=== PATIENT | female | born 1940 | race Caucasian/White ===

== ENCOUNTER 2020-09-17 10:43 | Emergency (ER) | payer MEDICARE, SELFPAY ==
--- NOTE | ~2020-09-17 | CT_ITS ---
EXAMINATION: CT HEAD WITHOUT CONTRAST CLINICAL INFORMATION: Weakness COMPARISON: None TECHNIQUE: Contiguous axial imaging was performed from the skull base to vertex without intravenous administration of contrast. This CT examination was performed using dose optimization techniques as appropriate, variously including the following: *Automated exposure control *Adjustment of mA and/or kV according to patient size (this includes techniques or standardized protocols for targeted exams where dose is matched to indication/reason for exam; i.e. extremities or head) *Use of iterative reconstruction technique DLP: 795 mGy-cm FINDINGS: There is no evidence of acute intracranial hemorrhage or territorial infarction. No abnormal mass effect or midline shift is seen. Segal to white matter differentiation is well preserved. No extra-axial fluid collections are identified. Hypoattenuation in the region of the left lentiform nucleus and the left external capsule, with x-ray. Dilatation of the left lateral ventricle. The findings are suggestive of a chronic infarct. The segal-white matter differentiation otherwise is well preserved. No evidence of acute territorial infarction is seen. Mild cerebral volume loss. Hypoattenuation in the white matter, more prominently left side, most likely related to chronic microangiopathic ischemic changes. No acute calvarial fracture. The mastoid air cells and visualized portions of the paranasal sinuses are well aerated. CT/CT head/brain wo con IMPRESSION: 1. No evidence of acute intracranial hemorrhage. 2. Hypoattenuation in the region of the left lentiform nucleus and left external capsule, having the appearance of a chronic infarction. 3. No findings to suggest acute territorial infarction. Further evaluation with MRI or CT as clinically warranted. 4. Chronic changes of cerebral volume loss and chronic microangiopathic ischemic changes, as detailed above.
--- NOTE | ~2020-09-17 | XR_ITS ---
EXAMINATION: XR CHEST CLINICAL INFORMATION: Shortness of breath COMPARISON: None TECHNIQUE: Frontal view of the chest was obtained. FINDINGS: No significant abnormality is noted involving the heart, lungs, mediastinum, bony thorax or soft tissues. XR/XR chest 1V IMPRESSION: Unremarkable examination.
[2020-09-17 11:09] VITALS: BP 131/37; PULSE 84; RESP 16; TEMP 36.6; O2SAT 96; BMI 28.3
--- NOTE | 2020-09-17 11:22 | ECG_ITS ---
Test Reason : WEAKNESS Blood Pressure : / mmHG Vent. Rate : 083 BPM Atrial Rate : 083 BPM P-R Int : 154 ms QRS Dur : 074 ms QT Int : 356 ms P-R-T Axes : 056 013 055 degrees QTc Int : 418 ms Sinus rhythm with frequent Premature ventricular complexes Nonspecific ST and T wave abnormality Abnormal ECG No previous ECGs available Referred By: Paula Cornell Electronically Signed By:KUMAR MERCER MD
--- NOTE | 2020-09-17 11:30 | ED.WEAKNESS ---
HPI - Weakness General Chief complaint: Weakness Stated complaint: fully vaccinated/weakness Time Seen by Provider: 09/17/20 11:21 Source: patient and EMS Mode of arrival: EMS Limitations: no limitations History of Present Illness HPI Narrative: 80 y/o female with history of HTN, hypothyroidism who presents to the ED via EMS from assisted living with reports of generalized weakness that started yesterday after receiving her 2nd dose of the COVID vaccine. She states she went to get up out of bed this morning but was so weak she was unable to get up. She walks with a walker at baseline but could not get herself out of bed. She does not recall what time she tried to get up out of bed. She lives alone. She denies falling. She denies numbness, tingling and focal weakness. She is scared of being in the hospital and is afraid she is going to . MD Complaint: generalized weakness, lack of energy and difficulty walking Onset (ago): day(s) (1) Duration: constant Location: generalized Migration: none Severity: severe Quality: aching Relieving factors: none Exacerbating factors: movement Context: other (recent 2nd COVID vaccination yesterday ) Associated symptoms: confusion and myalgias Related Data Allergies Allergy/AdvReac Type Severity Reaction Status Date / Time No Known Allergies Allergy Verified 09/17/20 12:25 Review of Systems Review of Systems: Constitutional: No Fever, No Chills ENT/Mouth: No sore throat, No Rhinorrhea, No Swallowing Difficulty Cardiovascular: No Chest Pain, + SOB, No Orthopnea, No Edema Respiratory: No Cough, No Sputum, No Wheezing, No dyspnea Gastrointestinal: No Nausea, No Vomiting, No Diarrhea, No abdominal Pain Genitourinary: No Dysuria, No Urinary Frequency, No Hematuria Musculoskeletal: + joint pain, + Myalgias Skin: No Skin Lesions, No rash Neuro: + Weakness, No Numbness, No Dizziness, No Headache Psych: + Anxiety/Panic, No Depression Heme/Lymph: No Bruising, No Lymphadenopathy Endocrine: No Polyuria, No Polydipsia PMFSH Past Medical History Medical History Hypercholesteremia Hypertension Hypothyroidism Social History Social History Smoked in Last 30 Days: No Use of substances other than those prescribed or required for medical reasons: No Any prior treatment program specific to substance use: No Advance Directives: No Advance Directives Information Provided: Yes Physical Exam Vital Signs: Vital Signs: Last Vital Signs Temp 97.9 F 09/17/20 11:09 Pulse 90 09/17/20 15:24 Resp 18 09/17/20 15:24 BP 135/60 09/17/20 15:24 Pulse Ox 96 09/17/20 15:24 Body Mass Index 28.3 Appearance: Alert. Oriented X2. No acute distress. Eyes: Pupils equal, round and reactive to light. ENT: Pharynx normal. Neck: Normal inspection. Neck supple. CVS: Normal heart rate and rhythm. Pulses normal. Respiratory: No respiratory distress. Breath sounds normal. Abdomen: Soft and nontender. +BS x4 Skin: Skin warm and dry. Normal skin color. Normal skin turgor. No rashes. Extremities: No lower extremity edema. Tender throughout without any signs of trauma. Warm and well perfused. Neuro: Oriented to person and place. Mild generalized weakness noted, symmetrical strength throughout. CN II-XII grossly intact. no pronator drift. equal before school babysitter strength. mild intention hand tremor bilaterally able to lift both legs off the bed but cannot hold them up. Normal DTR's of bilateral LE. Non-focal NIH Stroke Scale Internal: Initial- Upon Arrival Level of Consciousness: Alert Level of Consciousness Questions: Answers both questions correctly Level of Consciousness Commands: Performs both tasks correctly Best Gaze: Normal Visual: No visual loss Facial Palsy: Normal Motor Arm (Right): No drift Motor Arm (Left): No drift Motor Leg (Right): No drift Motor Leg (Left): No drift Limb Ataxia: Present in two limbs Sensory: Normal Best Language: No aphasia Dysarthia: Normal Extinction and Inattention: No abnormality Score: 2 Course Course Course Narrative: 80 y/o female presenting with generalized weakness x1 day that started after COVID vaccination yesterday. Her neurological exam is non-focal. Doubt acute CVA, she is out of treatment window with unknown last well time. She is disoriented to time and has mild tremor of her hands, unknown baseline. BP 90/50s with MAP 72. Will check CT head, lab workup and EKG. 1L IVF ordered. Suspect weakness is due to COVID vaccine. If medically cleared will have her evaluated by PT. No evidence of Guillian Gladwin with normal DTR's. Reevaluation(s) Reevaluation #1: Lab workup is unremarkable. CT head No findings to suggest acute territorial infarction, Hypoattenuation in the region of the left lentiform nucleus and left external capsule, having the appearance of a chronic infarction. Chronic changes of cerebral volume loss and chronic microangiopathic ischemic changes. Spoke with patient's daughter - she reports this is a frequent presentation for her mother. She has high anxiety that leads to upset stomach and decreased PO intake and weakness. She was very nervous about the vaccine. Confirmed with daughter that this is her baseline mental status, the generalized weakness is new but a recurring issue. She has been to several SNF's this year for the same and has been in the assisted living she is in for the last 6 weeks. PT consult placed. Anticipate acute rehab. Reevaluation #2: PT recommending STR - Case Management has made referrals. PO intaks is poor, continue to encourage. Ate a few bites of jello. UA resulted without signs of infeciton. Reevaluation #3: Patient is to be placed at [facility] for acute rehab. Patient and daughter agreeable. MDM - Weakness Medical Records Attestation: I reviewed the patient's medical records. Lab Data Attestation: I reviewed the patient's lab results. Result diagrams: 09/17/20 12:19 09/17/20 12:19 Labs: Lab Results 09/17/20 09/17/20 09/17/20 Range/Units 12:19 12:19 12:19 WBC 10.0 (4.8-10.8) X10*3/uL RBC 4.07 L (4.20-5.50) X10*6/uL Hgb 12.7 (12.0-16.0) g/dl Hct 39.4 (37-47) % MCV 96.8 (80-98) fL MCH 31.2 (27.0-33.0) pg MCHC 32.2 (31.0-35.0) g/dl RDW 13.1 (11.0-16.0) % Plt Count 191 (160-400) X10*3/uL MPV 9.5 (9.4-12.3) fL Immature Gran % (Auto) 0.4 (0.0-0.4) % Neut % (Auto) 89.7 H (45-73) % Lymph % (Auto) 4.4 L (20-40) % [place] % (Auto) 5.3 (2-11) % Eos % (Auto) 0.0 (0-4) % Baso % (Auto) 0.2 (0-2) % Lymph # (Auto) 0.4 L (1.2-4.9) X10*3/uL [place] # (Auto) 0.5 (0.1-1.2) X10*3/uL Eos # (Auto) 0.0 (0.0-0.4) X10*3/uL Baso # (Auto) 0.0 (0.0-0.2) X10*3/uL Abs Immat Gran (auto) 0.04 H (0.00-0.03) X10*3/uL Absolute Neuts (auto) 9.0 H (2.0-8.3) X10*3/uL Absolute Nucleated RBC 0.000 (0.0-0.012) X10*3/uL Nucleated RBC % (auto) 0.0 (0.0-0.2) /100WBC Smear Tech's Comments VERIFIED Hold Blue Top SEE NOTE Sodium 139 (135-145) mmol/L Potassium 4.4 (3.3-5.1) mmol/L Chloride 108 (96-108) mmol/L Carbon Dioxide 23 (22-29) mmol/L Anion Gap 12 (12-20) BUN 19 H (9-16) mg/dL Creatinine 1.04 (0.5-1.4) mg/dL Estim Creat Clear Calc 43.5 Estimated GFR 51 Random Glucose 119 H (60-115) mg/dL Lactic Acid (0.5-2.0) mmol/L Calcium 9.9 (8.4-10.2) mg/dL Magnesium 1.9 (1.6-2.6) mg/dL Total Bilirubin 0.8 (0.0-1.0) mg/dL Direct Bilirubin 0.3 (0.0-0.5) mg/dL AST 18 (5-31) U/L ALT 14 (0-31) U/L Alkaline Phosphatase 51 (39-117) U/L Troponin I High Sens (<3.5-17.0) ng/L C-Reactive Protein 0.80 H (< or = 0.50) mg/dL Total Protein 6.8 (6.5-8.0) g/dL Albumin 4.1 (3.5-5.0) g/dL Procalcitonin ng/mL Urine Color Urine Appearance Urine pH (5.0-8.0) Ur Specific [place] (1.005-1.025) Urine Protein (NEG-TRACE) MG/DL Urine Glucose (UA) (NEG) MG/DL Urine Ketones (NEG) MG/DL Urine Blood (NEG) Urine Nitrite (NEG) Ur Leukocyte Esterase (NEG) Urine RBC (0) /HPF Urine WBC (0-4) /HPF Ur Squamous Epith Cells /LPF Urine Bacteria /LPF Urine Mucus /LPF COVID-19 (LENIN) (Negative) COVID-19 Clin Com 09/17/20 09/17/20 09/17/20 Range/Units 12:19 12:20 12:20 WBC (4.8-10.8) X10*3/uL RBC (4.20-5.50) X10*6/uL Hgb (12.0-16.0) g/dl Hct (37-47) % MCV (80-98) fL MCH (27.0-33.0) pg MCHC (31.0-35.0) g/dl RDW (11.0-16.0) % Plt Count (160-400) X10*3/uL MPV (9.4-12.3) fL Immature Gran % (Auto) (0.0-0.4) % Neut % (Auto) (45-73) % Lymph % (Auto) (20-40) % [place] % (Auto) (2-11) % Eos % (Auto) (0-4) % Baso % (Auto) (0-2) % Lymph # (Auto) (1.2-4.9) X10*3/uL [place] # (Auto) (0.1-1.2) X10*3/uL Eos # (Auto) (0.0-0.4) X10*3/uL Baso # (Auto) (0.0-0.2) X10*3/uL Abs Immat Gran (auto) (0.00-0.03) X10*3/uL Absolute Neuts (auto) (2.0-8.3) X10*3/uL Absolute Nucleated RBC (0.0-0.012) X10*3/uL Nucleated RBC % (auto) (0.0-0.2) /100WBC Smear Tech's Comments Hold Blue Top Sodium (135-145) mmol/L Potassium (3.3-5.1) mmol/L Chloride (96-108) mmol/L Carbon Dioxide (22-29) mmol/L Anion Gap (12-20) BUN (9-16) mg/dL Creatinine (0.5-1.4) mg/dL Estim Creat Clear Calc Estimated GFR Random Glucose (60-115) mg/dL Lactic Acid 1.8 (0.5-2.0) mmol/L Calcium (8.4-10.2) mg/dL Magnesium (1.6-2.6) mg/dL Total Bilirubin (0.0-1.0) mg/dL Direct Bilirubin (0.0-0.5) mg/dL AST (5-31) U/L ALT (0-31) U/L Alkaline Phosphatase (39-117) U/L Troponin I High Sens 6.2 (<3.5-17.0) ng/L C-Reactive Protein (< or = 0.50) mg/dL Total Protein (6.5-8.0) g/dL Albumin (3.5-5.0) g/dL Procalcitonin 0.03 ng/mL Urine Color Urine Appearance Urine pH (5.0-8.0) Ur Specific [place] (1.005-1.025) Urine Protein (NEG-TRACE) MG/DL Urine Glucose (UA) (NEG) MG/DL Urine Ketones (NEG) MG/DL Urine Blood (NEG) Urine Nitrite (NEG) Ur Leukocyte Esterase (NEG) Urine RBC (0) /HPF Urine WBC (0-4) /HPF Ur Squamous Epith Cells /LPF Urine Bacteria /LPF Urine Mucus /LPF COVID-19 (LENIN) (Negative) COVID-19 Clin Com 09/17/20 09/17/20 09/17/20 Range/Units 12:20 14:35 15:24 WBC (4.8-10.8) X10*3/uL RBC (4.20-5.50) X10*6/uL Hgb (12.0-16.0) g/dl Hct (37-47) % MCV (80-98) fL MCH (27.0-33.0) pg MCHC (31.0-35.0) g/dl RDW (11.0-16.0) % Plt Count (160-400) X10*3/uL MPV (9.4-12.3) fL Immature Gran % (Auto) (0.0-0.4) % Neut % (Auto) (45-73) % Lymph % (Auto) (20-40) % [place] % (Auto) (2-11) % Eos % (Auto) (0-4) % Baso % (Auto) (0-2) % Lymph # (Auto) (1.2-4.9) X10*3/uL [place] # (Auto) (0.1-1.2) X10*3/uL Eos # (Auto) (0.0-0.4) X10*3/uL Baso # (Auto) (0.0-0.2) X10*3/uL Abs Immat Gran (auto) (0.00-0.03) X10*3/uL Absolute Neuts (auto) (2.0-8.3) X10*3/uL Absolute Nucleated RBC (0.0-0.012) X10*3/uL Nucleated RBC % (auto) (0.0-0.2) /100WBC Smear Tech's Comments Hold Blue Top Sodium (135-145) mmol/L Potassium (3.3-5.1) mmol/L Chloride (96-108) mmol/L Carbon Dioxide (22-29) mmol/L Anion Gap (12-20) BUN (9-16) mg/dL Creatinine (0.5-1.4) mg/dL Estim Creat Clear Calc Estimated GFR Random Glucose (60-115) mg/dL Lactic Acid (0.5-2.0) mmol/L Calcium (8.4-10.2) mg/dL Magnesium (1.6-2.6) mg/dL Total Bilirubin (0.0-1.0) mg/dL Direct Bilirubin (0.0-0.5) mg/dL AST (5-31) U/L ALT (0-31) U/L Alkaline Phosphatase (39-117) U/L Troponin I High Sens 7.1 (<3.5-17.0) ng/L C-Reactive Protein (< or = 0.50) mg/dL Total Protein (6.5-8.0) g/dL Albumin (3.5-5.0) g/dL Procalcitonin ng/mL Urine Color YELLOW Urine Appearance HAZY Urine pH 5.5 (5.0-8.0) Ur Specific [place] 1.020 (1.005-1.025) Urine Protein NEG (NEG-TRACE) MG/DL Urine Glucose (UA) NEG (NEG) MG/DL Urine Ketones NEG (NEG) MG/DL Urine Blood 3+ H (NEG) Urine Nitrite NEG (NEG) Ur Leukocyte Esterase NEG (NEG) Urine RBC 15-29 H (0) /HPF Urine WBC 0-2 (0-4) /HPF Ur Squamous Epith Cells 1+ /LPF Urine Bacteria 1+ /LPF Urine Mucus 1+ /LPF COVID-19 (LENIN) Negative (Negative) COVID-19 Clin Com See Note ECG Data Attestation: I personally reviewed and interpreted this ECG as follows: ECG interpretation date: 09/17/20 ECG interpretation time: 12:02 Prior ECG tracings: not available for review Interpretation: normal sinus rhythm with HR 83 bpm, frequent PVC's noted in trigeminy pattern, normal IA interval, normal QRS, normal QTc, no ST elevations Critical Care Time Critical Care Time Critical Care Time: No Discharge Plan Discharge Clinical Impression: Generalized weakness Patient Disposition: [facility] Instructions: Weakness (ED), Anxiety (ED) Additional Instructions: Your CT scan, chest x-ray, blood work and urine tests done today in the Emergency Department were unremarkable. It is likely that your weakness is due to an adverse reaction of the COVID vaccine. It is evidence that your immune system is having a response to the vaccine, which is a good thing. Take Tylenol as needed for body aches and pain. You need to make sure you are eating and drinking enough. Stay hydrated. Recommend referral to acute rehab until your strength is returned and you can safely return to your assisted living. Follow up with your doctor next week.
[2020-09-17] MEDS: 0.9 % Sodium Chloride 1,000 ML 999 ML IVCONT (12:25)
[2020-09-17 12:31] LABS: Basophils Percent Auto 0.2 % (0-2); Hematocrit 39.4 % (37-47); Hemoglobin 12.7 g/dl (12.0-16.0); Imm Gran Abs Auto 0.04 X10*3/uL (0.00-0.03); Imm Gran Pct Auto 0.4 % (0.0-0.4); Lymphocytes Absolute Auto 0.4 X10*3/uL (1.2-4.9); Lymphocytes Percent Auto 4.4 % (20-40); MANUAL DIFF FLAG SCAN; Mean Corpuscular HGB Conc 32.2 g/dl (31.0-35.0); Mean Corpuscular Hemoglobin 31.2 pg (27.0-33.0); Mean Corpuscular Volume 96.8 fL (80-98); Mean Platelet Volume 9.5 fL (9.4-12.3); Monocytes Absolute Auto 0.5 X10*3/uL (0.1-1.2); Monocytes Percent Auto 5.3 % (2-11); Neutrophils Percent Auto 89.7 % (45-73); Platelet Count 191 X10*3/uL (160-400); Red Blood Count 4.07 X10*6/uL (4.20-5.50); Red Cell Distribution Width 13.1 % (11.0-16.0); SCAN SMEAR FLAG 1
[2020-09-17 12:50] LABS: SLIDE REVIEW VERIFIED
[2020-09-17 12:54] LABS: Lactic Acid 1.8 mmol/L (0.5-2.0)
[2020-09-17 12:54] LABS: COVID-19 Test Negative (Negative); IDNOW Serial# 9DD0AD1C
[2020-09-17 13:01] LABS: Alanine Aminotransferase 14 U/L (0-31); Albumin Level 4.1 g/dL (3.5-5.0); Alkaline Phosphatase 51 U/L (39-117); Anion Gap 12 (12-20); Aspartate Amino Transferase 18 U/L (5-31); Bilirubin Direct 0.3 mg/dL (0.0-0.5); Bilirubin Total 0.8 mg/dL (0.0-1.0); Blood Urea Nitrogen 19 mg/dL (9-16); Calcium 9.9 mg/dL (8.4-10.2); Carbon Dioxide 23 mmol/L (22-29); Chloride 108 mmol/L (96-108); Creatinine Clr Calc Pharmacy 43.5; Estimated Glomerular Filt Rate 51; Glucose Random 119 mg/dL (60-115); Magnesium 1.9 mg/dL (1.6-2.6); Potassium 4.4 mmol/L (3.3-5.1); Sodium 139 mmol/L (135-145); Total Protein 6.8 g/dL (6.5-8.0)
[2020-09-17 13:04] LABS: Troponin-I High Sensitivity 6.2 ng/L (<3.5-17.0)
[2020-09-17 13:24] LABS: Procalcitonin 0.03 ng/mL
[2020-09-17 13:41] VITALS: BP 143/68; PULSE 101; RESP 20; O2SAT 98
[2020-09-17 13:50] VITALS: BP 143/68; PULSE 101; O2SAT 98
[2020-09-17 14:45] LABS: Color Urine YELLOW; Glucose Urine UA NEG (NEG); Leukocyte Esterase Urine NEG (NEG); Nitrite Urine NEG (NEG); PH 5.5 (5.0-8.0); Urine Blood 3+ (NEG); Urine Ketones NEG (NEG); Urine Protein NEG (NEG-TRACE)
[2020-09-17 14:46] LABS: Appearance Urine HAZY
--- NOTE | 2020-09-17 14:48 | MHC.CM.ED ---
at the time i visited pt in her room she was confused and unable to have a conversation about the next step of possibly going to a STR. if patient improves in her confusion then we will be able to have an appropriate conversation. the HCP.daughter- jonathan guzman ph: [phone] was called and message left requesting a call back. there is a copy of the HCP on the physical chart. i also called [facility] and spoke c director, marianela ph: [phone]; she confirmed the HCP information and had no other family contact numbers. PT has seen patient and is recommending STR, unfortunately we cannot make refs at this time until pt's AMS improves or we speak c HCP. this was shared c PA and rn in the e.d. cm to cont. to follow.
[2020-09-17 15:06] LABS: Bacteria Urine 1+ /LPF; Mucus Urine 1+ /LPF; Squamous Epithelial Cell Urine 1+ /LPF; WBC Urine 0-2 /HPF (0-4)
[2020-09-17 15:24] VITALS: BP 135/60; PULSE 90; RESP 18; O2SAT 96
--- NOTE | 2020-09-17 16:02 | MHC.CM.ED ---
i spoke c pt's hcp - jonathan. she has requested refs be made to [facility] for extended care, [facility]; [facility] and [facility]. these refs have been made. when bed offers come in we will contact jonathan at ph; [phone] and have her make a choice . pt is ready to dc as soon as str bed available. PA and rn are aware of this dc plan. cm to cont. to follow.
[2020-09-17 16:04] LABS: Troponin-I High Sensitivity 7.1 ng/L (<3.5-17.0)
[2020-09-17] MEDS: Lactated Ringers 1,000 ML 999 ML IV (16:16)
--- NOTE | 2020-09-17 16:45 | MHC.CM.ED ---
[facility] has accepted pt. HCP/daughter Linda has accepted the bed. Waiting for auth. Will follow for d/c needs
--- NOTE | 2020-09-17 17:12 | PC.NURSE ---
Pt failed PT eval. Case management referral in for SNF placement.
--- NOTE | 2020-09-17 17:54 | PC.NURSE ---
Report given to RN at [facility]. Anticipated Transfer time, per ems, is 6:30pm.
--- NOTE | 2020-09-17 18:16 | MHC.CM.ED ---
Per Tasha, [facility] will accept and can transport tonight. BLS booked for 6:30pm. Message left with daughter about transfer tonight. Given contact # for MartyJosee at [place]. Med list uploaded in [employer] and placed in chart. RN and Paula RENAE aware. CM will continue to monitor for d/c needs.
[2020-09-17 18:26] VITALS: BP 143/84; PULSE 93; RESP 16; O2SAT 97
== END 2020-09-17 21:20 | disposition skilled nursing facility (03) ==
PROVIDERS: Physician Assistant; Emergency Provider Emergency Medicine Emergency Medical Services
DX: R53.1 Weakness (principal); R41.82 Altered mental status, unspecified; Z20.822 Contact with and (suspected) exposure to COVID-19; I10 Essential (primary) hypertension; F41.9 Anxiety disorder, unspecified
CPT/HCPCS: 36415; 51701; 70450; 71045; 80048; 80076; 81001; 83605; 83735; 84145; 84484; 85025; 86140; 87040; 87635; 93005; 96361; 96365; 97162; 99284; 99285

== ENCOUNTER 2021-12-16 10:13 | Outpatient (REF) | payer MEDICARE, SELFPAY ==
--- NOTE | ~2021-12-16 | CT_ITS ---
EXAMINATION: CT HEAD WITHOUT CONTRAST CLINICAL INFORMATION: 81-year-old with Parkinson's disease. COMPARISON: 09/17/2020 CT brain. TECHNIQUE: Contiguous axial imaging was performed from the skull base to vertex without intravenous administration of contrast. This CT examination was performed using dose optimization techniques as appropriate, variously including the following: *Automated exposure control *Adjustment of mA and/or kV according to patient size (this includes techniques or standardized protocols for targeted exams where dose is matched to indication/reason for exam; i.e. extremities or head) *Use of iterative reconstruction technique DLP: 693 mGy-cm FINDINGS: BRAIN VOLUME: Moderate generalized diffuse brain parenchymal volume loss is again noted with a similar overall appearance. STRUCTURAL: No malformations. BRAIN AND MENINGES: Redemonstrated are patchy and confluent zones of hypodensity in the subcortical and deeper periventricular white matter of the cerebral hemispheres, left more than right with a similar overall pattern and distribution consistent with chronic ischemic microangiopathy. There is evidence of a remote infarct involving the left lentiform nucleus and subinsular region with ex vacuo dilatation of the anterior body and frontal horn of the left lateral ventricle consistent with focal regional volume loss similar to the previous study. No acute territorial infarct, hemorrhage, extra-axial fluid collection, space-occupying process or mass effect. Hypodensity in the posterior limb of left internal capsule consistent with chronic ischemic change unchanged in appearance. Bilateral carotid siphon calcifications and bilateral vertebral artery calcifications similar to previous exam. VENTRICLES AND SUBARACHNOID SPACES: The ventricular system and subarachnoid spaces are similar in appearance to the prior study. No hydrocephalus. ORBITAL STRUCTURES: Grossly unremarkable within the limitations of the study. OSSEOUS STRUCTURES, SINUSES/MASTOIDS, EXTRACRANIAL SOFT TISSUES: Unremarkable. CT/CT head/brain wo con IMPRESSION: 1. 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 2. No evidence for acute territorial infarct, hemorrhage, significant space-occupying process or mass effect. 3. Generalized volume loss and ex vacuo dilatation of the left lateral ventricle stable in appearance. No hydrocephalus.
== END 2021-12-16 10:14 | disposition home or self-care (01) ==
LOC: HO.CT 10:13
PROVIDERS: Visit Provider Psychiatry & Neurology Neurology
DX: G20 Parkinson's disease (principal)
CPT/HCPCS: 70450

== ENCOUNTER 2022-05-26 13:25 | Outpatient (REF) | payer MEDICARE, SELFPAY ==
[2022-05-26 13:35] LABS: Appearance Urine Turbid; Color Urine Yellow; Glucose Urine UA Negative (Negative); Leukocyte Esterase Urine Large (3+) (Negative); Nitrite Urine Positive (Negative); UMIC TRIGGER UA YES; Urine Blood Moderate (2+) (Negative); Urine Ketones Trace mg/dL (Negative); Urine Protein Trace mg/dL (Neg-Trace)
[2022-05-26 13:40] LABS: Bacteria Urine 4+ (None Seen); WBC Urine >50 /HPF (0-5)
== END 2022-05-26 13:26 | disposition home or self-care (01) ==
LOC: HO.HVNA 13:25
PROVIDERS: Visit Provider Nurse Practitioner Family
DX: R30.0 Dysuria (principal); M54.50 Low back pain, unspecified
CPT/HCPCS: 81001; 87086; 87088; 87186

== ENCOUNTER 2022-11-17 15:16 | Emergency (ER) | payer MEDICARE, SELFPAY ==
--- NOTE | ~2022-11-17 | XR_ITS ---
EXAMINATION: XR CHEST CLINICAL INFORMATION: Reason for Exam left sided crackles COMPARISON: Chest radiograph 09/17/2020 TECHNIQUE: One view of the chest FINDINGS: Few minimal patchy left basilar opacities may reflect atelectasis, however aspiration or infection would be difficult to exclude. No pneumothorax or pleural effusion. Unchanged cardiomediastinal silhouette. XR/XR chest 1V IMPRESSION: Few minimal patchy left basilar opacities may reflect atelectasis, however aspiration or infection would be difficult to exclude.
[2022-11-17 15:36] VITALS: BP 120/54; PULSE 65; RESP 19; TEMP 36.7; O2SAT 92; BMI 21.6
--- NOTE | 2022-11-17 16:53 | ECG_ITS ---
Test Reason : CP Blood Pressure : / mmHG Vent. Rate : 058 BPM Atrial Rate : 058 BPM P-R Int : 182 ms QRS Dur : 072 ms QT Int : 430 ms P-R-T Axes : 075 005 051 degrees QTc Int : 422 ms Sinus bradycardia Otherwise normal ECG When compared with ECG of 17-SEP-2020 12:01, Premature ventricular complexes are no longer Present Nonspecific T wave abnormality, improved in Lateral leads Referred By: Nader Andujar Electronically Signed By:Jasno Covarrubias
--- NOTE | 2022-11-17 16:57 | ED_ITS ---
HPI - General Adult General Chief complaint: Weakness Stated complaint: AMS, fever per EMS Time Seen by Provider: 11/17/22 16:45 Source: patient Mode of arrival: EMS Limitations: other (Memory issues) History of Present Illness HPI narrative: 82-year-old female presents with reportedly fevers and generalized weakness and difficulty walking. Patient is unable to provide a significant amount history. She denies any fever, chills, cough or mucus production. She denies any pain. She reportedly is eating well. She is not sure why she is here. She is not sure what in fact where she is at this time. She is not sure how she got to the hospital. She denies any headache, nausea, vomiting, neck pain, chest pain or shortness of breath. She does have a cough which she reports is normal for her but she denies any mucus production. Related Data Home Medications Medication Instructions Recorded Confirmed alendronate 70 mg tablet 70 mg PO MO@0630 11/17/22 11/17/22 atorvastatin 20 mg tablet 20 mg PO DAILY 11/17/22 11/17/22 carbidopa 25 mg-levodopa 100 mg 1 tab PO 5XD 11/17/22 11/17/22 tablet levothyroxine 75 mcg tablet 75 mcg PO DAILY 11/17/22 11/17/22 lisinopril 5 mg tablet 5 mg PO DAILY 11/17/22 11/17/22 nitrofurantoin 1 cap PO BID 11/17/22 11/17/22 monohydrate/macrocrystals 100 mg capsule Allergies Allergy/AdvReac Type Severity Reaction Status Date / Time No Known Allergies Allergy Verified 09/17/20 12:25 [facility] Past Medical History Medical History Hypercholesteremia Hypertension Hypothyroidism Social History Social History Alcohol intake: never Smoked in Last 30 Days: No Use of substances other than those prescribed or required for medical reasons: No Advance Directives: No Advance Directives Information Provided: No Physical Exam ED Vital Signs: Vital Signs - 24 hr 11/17/22 15:36 11/17/22 17:06 11/17/22 17:34 Temperature 98.1 F 97.2 F Pulse Rate 65 64 Respiratory Rate 19 15 Blood Pressure 120/54 L 128/66 Pulse Oximetry 92 96 Oxygen Delivery Method Room Air Room Air 11/17/22 19:18 11/18/22 01:02 Temperature 97.9 F 98.1 F Pulse Rate 71 73 Respiratory Rate 20 15 Blood Pressure 143/85 H 152/74 H Pulse Oximetry 94 96 Oxygen Delivery Method Room Air Room Air BMI result Body Mass Index 21.6 GEN: Well developed, no acute distress, alert, oriented x1 HEENT: Normocephalic, atraumatic, normal external ears, nose appears normal, no oropharyngeal edema or exudates Eyes: Normal to appearance Neck: Supple, no lymphadenopathy Respiratory: Talks in complete sentences, no respiratory distress, clear to au scultation bilaterally Cardiovascular: Regular rate and rhythm, no murmurs rubs or gallops Abdomen: Soft, nontender, nondistended, no guarding, no rebound Back: No CVA tenderness Extremities: No clubbing cyanosis or edema Neurologic: No focal neurologic deficits, cranial nerves 2-12 intact, strength is 5/5 bilaterally Skin: No rash Course Course Course Narrative: 82-year-old female presents for an evaluation for reportedly feeling generally weak and having fevers. On examination is benign. She has no fever here. Will check routine laboratory analysis, urinalysis, chest x-ray since she has left sided crackles. We can then see if patient is able to ambulate and re-evaluate patient for disposition. Reevaluation(s) Reevaluation #1: patient is pending PT and case management. Dr. Moore to assume care at this time Time: 02:00 Medical Decision Making Medical Decision Making MDM Narrative: Year old female presents with generalized weakness. She reportedly has a fever. On our evaluation, vital signs identify no fever. She has no focal neurologic deficits. She is alert, comfortable, disoriented. I suspect this is her baseline. Will try to obtain additional history from EMS and family. Differential diagnosis is broad which could include UTI, infection, pneumonia, fusion, dementia, electrolyte abnormality, glucose metabolism issue Admission/Observation Consideration of admission/observation: Escalation of care including admission/observation considered Lab Data [facility] Lab Attestation statement: I reviewed the patient's lab results. 11/17/22 17:29 11/17/22 17:29 Labs: Lab Results 11/17/22 11/17/22 11/17/22 Range/Units 17:29 17:29 17:29 WBC 10.6 (4.8-10.8) X10*3/uL RBC 3.71 L (4.20-5.50) X10*6/uL Hgb 11.5 L (12.0-16.0) g/dl Hct 35.9 L (37.0-47.0) % MCV 96.8 (80.0-98.0) fL MCH 31.0 (27.0-33.0) pg MCHC 32.0 (31.0-35.0) g/dl RDW 12.8 (11.0-16.0) % Plt Count 181 (160-400) X10*3/uL MPV 9.6 (9.4-12.3) fL Immature Gran % (Auto) 0.6 H (0.0-0.4) % Neut % (Auto) 76.8 H (45-73) % Lymph % (Auto) 11.7 L (20-40) % Boundary % (Auto) 8.2 (2-11) % Eos % (Auto) 2.5 (0-4) % Baso % (Auto) 0.2 (0-2) % Lymph # (Auto) 1.2 (1.2-4.9) X10*3/uL Boundary # (Auto) 0.9 (0.1-1.2) X10*3/uL Eos # (Auto) 0.3 (0.0-0.4) X10*3/uL Baso # (Auto) 0.0 (0.0-0.2) X10*3/uL Abs Immat Gran (auto) 0.06 H (0.00-0.03) X10*3/uL Absolute Neuts (auto) 8.1 (2.0-8.3) x10*3/uL Absolute Nucleated RBC 0.000 (0.0-0.012) X10*3/uL Nucleated RBC % (auto) 0.0 (0.0-0.2) /100WBC Sodium 139 (135-145) mmol/L Potassium 4.6 (3.3-5.1) mmol/L Chloride 107 (96-108) mmol/L Carbon Dioxide 25 (22-29) mmol/L Anion Gap 12 (12-20) BUN 15 (9-16) mg/dL Creatinine 0.84 (0.5-1.4) mg/dL Estim Creat Clear Calc 45.6 Estimated GFR > 60 Random Glucose 97 (60-115) mg/dL Lactic Acid 1.2 (0.5-2.0) mmol/L Calcium 9.6 (8.4-10.2) mg/dL Total Bilirubin 1.1 H (0.0-1.0) mg/dL AST 8 (5-31) U/L ALT < 5 (0-31) U/L Alkaline Phosphatase 39 (39-117) U/L Total Protein 5.8 L (6.5-8.0) g/dL Albumin 3.8 (3.5-5.0) g/dL TSH 0.58 (0.32-4.0) uIU/mL Urine Color Urine Appearance Urine pH (5.0-9.0) Ur Specific [place] (1.005-1.025) Urine Protein (Neg-Trace) mg/dL Urine Glucose (UA) (Negative) mg/dL Urine Ketones (Negative) mg/dL Urine Blood (Negative) Urine Nitrite (Negative) Ur Leukocyte Esterase (Negative) Urine RBC (0-2) /HPF Urine WBC (0-5) /HPF Ur Squamous Epith Cells (0-2) /HPF Urine Bacteria (None Seen) Hyaline Casts (0-2) /LPF 11/17/22 Range/Units 17:52 WBC (4.8-10.8) X10*3/uL RBC (4.20-5.50) X10*6/uL Hgb (12.0-16.0) g/dl Hct (37.0-47.0) % MCV (80.0-98.0) fL MCH (27.0-33.0) pg MCHC (31.0-35.0) g/dl RDW (11.0-16.0) % Plt Count (160-400) X10*3/uL MPV (9.4-12.3) fL Immature Gran % (Auto) (0.0-0.4) % Neut % (Auto) (45-73) % Lymph % (Auto) (20-40) % Boundary % (Auto) (2-11) % Eos % (Auto) (0-4) % Baso % (Auto) (0-2) % Lymph # (Auto) (1.2-4.9) X10*3/uL Bound[place] # (Auto) (0.1-1.2) X10*3/uL Eos # (Auto) (0.0-0.4) X10*3/uL Baso # (Auto) (0.0-0.2) X10*3/uL Abs Immat Gran (auto) (0.00-0.03) X10*3/uL Absolute Neuts (auto) (2.0-8.3) x10*3/uL Absolute Nucleated RBC (0.0-0.012) X10*3/uL Nucleated RBC % (auto) (0.0-0.2) /100WBC Sodium (135-145) mmol/L Potassium (3.3-5.1) mmol/L Chloride (96-108) mmol/L Carbon Dioxide (22-29) mmol/L Anion Gap (12-20) BUN (9-16) mg/dL Creatinine (0.5-1.4) mg/dL Estim Creat Clear Calc Estimated GFR Random Glucose (60-115) mg/dL Lactic Acid (0.5-2.0) mmol/L Calcium (8.4-10.2) mg/dL Total Bilirubin (0.0-1.0) mg/dL AST (5-31) U/L ALT (0-31) U/L Alkaline Phosphatase (39-117) U/L Total Protein (6.5-8.0) g/dL Albumin (3.5-5.0) g/dL TSH (0.32-4.0) uIU/mL Urine Color Dark Yellow Urine Appearance Clear Urine pH 5.5 (5.0-9.0) Ur Specific [place] 1.020 (1.005-1.025) Urine Protein Trace (Neg-Trace) mg/dL Urine Glucose (UA) Negative (Negative) mg/dL Urine Ketones 15 (Negative) mg/dL Urine Blood Moderate (2+) H (Negative) Urine Nitrite Negative (Negative) Ur Leukocyte Esterase Negative (Negative) Urine RBC 11-20 H (0-2) /HPF Urine WBC 0-5 (0-5) /HPF Ur Squamous Epith Cells 0-2 (0-2) /HPF Urine Bacteria None Seen (None Seen) Hyaline Casts 3-5 (0-2) /LPF Independent Interpretation I performed an independent interpretation of an: EKG (Sinus bradycardia heart rate 58, normal intervals, no acute ST elevations depressions, nonspecific T- wave changes) and Plain X-Ray (Chest: NAD) External Record Review No records available Discharge Plan Discharge Clinical Impression: Generalized weakness Prescriptions: No Action atorvastatin 20 mg tablet 20 mg PO DAILY alendronate 70 mg tablet 70 mg PO MO@0630 levothyroxine 75 mcg tablet 75 mcg PO DAILY lisinopril 5 mg tablet 5 mg PO DAILY carbidopa-levodopa 25-100 mg tablet 1 tab PO 5XD nitrofurantoin monohyd/m-cryst 100 mg capsule 1 cap PO BID
[2022-11-17 17:06] VITALS: TEMP 36.2
[2022-11-17 17:34] VITALS: BP 128/66; PULSE 64; RESP 15; O2SAT 96
[2022-11-17 17:35] LABS: MANUAL DIFF FLAG NO
[2022-11-17 17:47] LABS: Basophils Percent Auto 0.2 % (0-2); Eosinophils Absolute Auto 0.3 X10*3/uL (0.0-0.4); Eosinophils Percent Auto 2.5 % (0-4); Hematocrit 35.9 % (37.0-47.0); Hemoglobin 11.5 g/dl (12.0-16.0); Imm Gran Abs Auto 0.06 X10*3/uL (0.00-0.03); Imm Gran Pct Auto 0.6 % (0.0-0.4); Lymphocytes Absolute Auto 1.2 X10*3/uL (1.2-4.9); Lymphocytes Percent Auto 11.7 % (20-40); Mean Corpuscular Volume 96.8 fL (80.0-98.0); Mean Platelet Volume 9.6 fL (9.4-12.3); Monocytes Absolute Auto 0.9 X10*3/uL (0.1-1.2); Monocytes Percent Auto 8.2 % (2-11); Neutrophils Absolute Auto 8.1 x10*3/uL (2.0-8.3); Neutrophils Percent Auto 76.8 % (45-73); Platelet Count 181 X10*3/uL (160-400); Red Blood Count 3.71 X10*6/uL (4.20-5.50); Red Cell Distribution Width 12.8 % (11.0-16.0); White Blood Count 10.6 X10*3/uL (4.8-10.8)
[2022-11-17 17:49] LABS: Lactic Acid 1.2 mmol/L (0.5-2.0)
[2022-11-17 18:00] LABS: Alanine Aminotransferase < 5 U/L (0-31); Albumin Level 3.8 g/dL (3.5-5.0); Alkaline Phosphatase 39 U/L (39-117); Anion Gap 12 (12-20); Aspartate Amino Transferase 8 U/L (5-31); Bilirubin Total 1.1 mg/dL (0.0-1.0); Blood Urea Nitrogen 15 mg/dL (9-16); Calcium 9.6 mg/dL (8.4-10.2); Carbon Dioxide 25 mmol/L (22-29); Chloride 107 mmol/L (96-108); Creatinine Clr Calc Pharmacy 45.6; Estimated Glomerular Filt Rate > 60; Glucose Random 97 mg/dL (60-115); Potassium 4.6 mmol/L (3.3-5.1); Sodium 139 mmol/L (135-145); Total Protein 5.8 g/dL (6.5-8.0)
[2022-11-17 18:02] LABS: Appearance Urine Clear; Color Urine Dark Yellow; Glucose Urine UA Negative (Negative); Leukocyte Esterase Urine Negative (Negative); Nitrite Urine Negative (Negative); PH 5.5 (5.0-9.0); UMIC TRIGGER UACC YES; Urine Blood Moderate (2+) (Negative); Urine Ketones 15 mg/dL (Negative); Urine Protein Trace mg/dL (Neg-Trace)
[2022-11-17 18:11] LABS: Bacteria Urine None Seen (None Seen); Squamous Epithelial Cell Urine 0-2 /HPF (0-2); WBC Urine 0-5 /HPF (0-5)
[2022-11-17 18:14] LABS: TSH reflex Free T4 0.58 uIU/mL (0.32-4.0)
[2022-11-17 19:18] VITALS: BP 143/85; PULSE 71; RESP 20; TEMP 36.6; O2SAT 94
--- NOTE | 2022-11-17 20:30 | PC.NURSE ---
pt ambulated in halls, gait steady slow, pt needs a walker, pt requested to go to a NH. Dr. king
--- NOTE | 2022-11-17 20:33 | PHA.MEDREC ---
Pharmacy Consult ? Medication Reconciliation Pharmacy has completed the medication reconciliation. spoke with pt but she wants it reviewed with her daughter who is coming in from [place]. Pt wanted note left in her room asking her daughter for the med list.
--- NOTE | 2022-11-18 01:01 | PC.NURSE ---
Report at 23:00. Requested covid swab order and home meds from .
[2022-11-18 01:02] VITALS: BP 152/74; PULSE 73; RESP 15; TEMP 36.7; O2SAT 96
[2022-11-18 01:46] LABS: COVID-19 Test Negative (Negative); IDNOW Serial# 6674DD1D
[2022-11-18 02:49] VITALS: BP 133/60; PULSE 63; RESP 13; TEMP 36.5; O2SAT 94
--- NOTE | 2022-11-18 04:23 | PC.NURSE ---
Pt has brief from home on, slightly wet with urine. Brief removed, pt cleaned and purewick placed to keep pt dry.
--- NOTE | 2022-11-18 04:24 | PC.NURSE ---
Jloop flushed, #18 left AC.
--- NOTE | 2022-11-18 04:26 | PC.NURSE ---
Report given to Kishan SALAS in overflow. Pt will be transferred to Room 3.
[2022-11-18 06:00] VITALS: BP 163/72; PULSE 88; RESP 16; TEMP 36.3; O2SAT 94
[2022-11-18] MEDS: Levothyroxine Sodium 75 MCG TABLET PO (06:07)
[2022-11-18] MEDS: Carbidopa/Levodopa 25/100 TABLET 1 TAB PO ×5 (06:07→21:31)
--- NOTE | 2022-11-18 06:27 | PC.NURSE ---
pt arrived via ED. pt tolerated transfer, medicated with 0600 meds w/o any difficulty
[2022-11-18] MEDS: Atorvastatin Calcium 20 MG TABLET PO (09:21)
[2022-11-18] MEDS: lisinopriL 5 MG TABLET PO (09:21)
--- NOTE | 2022-11-18 10:17 | MHC.CM.PN ---
CM MET WITH PT TO DISCUSS DC PLANNING, PT APPEARS CONFUSED AND STATES SHE DOES NOT KNOW WHAT SHE WANTS TO DO NEXT. ROQUE CALLED PTS DAUGHTER SADIA [phone] WHO REPORTS THE PT LIVES IN [facility] AND USES A WALKER TO AMBULATE SHE REPORTS CONCERNS ABOUT THE PTS BP AND TEMP. SHE SAYS THE PT HAS [facility] SO IS CHRONICALLY UNSTEADY, SHE SAYS SHE WAS MORE CONCERNED THIS TIME BECAUSE SHE WAS TOLD THE PTS BP WAS LOW AND SHE WAS DIZZY. SADIA REPORTS THE PT WAS DISCHARGED FROM [facility] IN [place] SHE SAYS AT THAT TIME, [facility] INSURANCE TERMED SO THEY SWITCHED HER TO [facility] MEDICARE WITH BC SUPPLEMENT SADIA AGREES WITH A REFERRAL BEING MADE TO [facility] AND UNDERSTANDS THIS MAY BE THE PLAN IF THE PT EVAL SUPPORTS STR SHE REPORTS SHE WILL BE HERE AROUND 1600 HOURS SHE IS DRIVING FROM [facility] SHE SAYS SHE WILL BE ABLE TO TRANSPORT PT EITHER HOME OR TO THE REHAB AT THAT TIME PT IS COVID VAX AND BOOSTED AND HER POA IS ON FILE SADIA STATED THE PTS NEW INSURANCE CARDS SHOULD BE IN THE CASE INSIDE HER PAZ BAG AT BEDSIDE SHE SAYS SHE DID ASK EMS TO BRING IT CM WAS ABLE TO LOCATE PTS MEDICARE CARD (NOT THE BC SUPPLEMENT CARD) COPY MADE AND SENT TO ED REG TO BE UPLOADED TO [facility] MEDICARE NUMBER SENT TO [facility] PT EVAL STILL PENDING
--- NOTE | 2022-11-18 13:54 | PC.NURSE ---
pt c/o pain at IV site. area was slightly reddened. as CM told this program writer that pt was likely to be leaving today, IV was removed.
[2022-11-18 15:13] VITALS: BP 128/43; PULSE 59; RESP 12; TEMP 36.6; O2SAT 97
--- NOTE | 2022-11-18 18:20 | PC.NURSE ---
uneventful day for pt. daughter and son in law visited. pt ate approx 50% of lunch and dinner. pt declined breakfast, preferring to remain asleep. pt took all medications, pleasant affect
[2022-11-18 21:12] VITALS: BP 142/69; PULSE 60; RESP 16; TEMP 36.8; O2SAT 96
--- NOTE | 2022-11-18 22:57 | PC.NURSE ---
Pt alert and oriented to self only, pleasant, primarily bedbound, using purewick, safety alarms in place. Lying in hospital bed. Denies pain or discomforts at this time. See biophysical for focused assessment full details. Call barr placed within reach. Will continue to monitor for changes or needs.
--- NOTE | 2022-11-19 01:35 | MHC.EDTECH ---
t/w emptied 350 cc dark, concentrated urine from [employer]
[2022-11-19 05:08] VITALS: BP 125/50; PULSE 55; RESP 17; TEMP 36.6; O2SAT 93
[2022-11-19] MEDS: Carbidopa/Levodopa 25/100 TABLET 1 TAB PO ×5 (06:05→20:42)
[2022-11-19] MEDS: Levothyroxine Sodium 75 MCG TABLET PO (06:05)
--- NOTE | 2022-11-19 06:23 | PC.NURSE ---
pt slept during the shift, woke up around 5 am, reading her book, tolerated po meds
--- NOTE | 2022-11-19 08:31 | MHC.CM.PN ---
CM SPOKE WITH DAUGHTER SADIA WHO WILL WAIT TO SEE WHAT P.T. RECOMMENDS. AWAITING RESPONSE FROM [facility] (DAUGHTER'S FIRST CHOICE) CM WILL CONTINUE TO FOLLOW.
[2022-11-19 08:37] VITALS: BP 97/52; PULSE 62; RESP 18; TEMP 36.6; O2SAT 97
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
[2022-11-19] MEDS: Atorvastatin Calcium 20 MG TABLET PO (09:59)
[2022-11-19 14:00] VITALS: BP 117/56; PULSE 62; RESP 18; TEMP 36.7; O2SAT 96
[2022-11-20 04:00] VITALS: BP 160/63; PULSE 62; RESP 18; TEMP 36.7; O2SAT 94
[2022-11-20] MEDS: Carbidopa/Levodopa 25/100 TABLET 1 TAB PO ×2 (05:35→09:50)
[2022-11-20] MEDS: Levothyroxine Sodium 75 MCG TABLET PO (05:35)
[2022-11-20 08:39] VITALS: BP 114/51; PULSE 68; RESP 20; O2SAT 97
[2022-11-20] MEDS: Atorvastatin Calcium 20 MG TABLET PO (08:49)
[2022-11-20] MEDS: lisinopriL 5 MG TABLET PO (08:49)
[2022-11-20] MEDS: levoFLOXacin 750 MG TABLET PO (09:22)
--- NOTE | 2022-11-20 09:24 | MHC.CM.ED ---
Patient remains in ER overflow. [facility] is able to accept patient. She can leave at 10am. Patricia LING booked. Patient, daughter LindaTatiana RN and Aspen RENAE aware. Continue to monitor for d/c needs.
--- NOTE | 2022-11-20 10:25 | PC.NURSE ---
Pt cleaned and changed prior to discharge to [facility]. Report called to Savanah Sheikh.
== END 2022-11-20 10:27 ==
PROVIDERS: Emergency Provider Emergency Medicine; PCP Internal Medicine
DX: R53.1 Weakness (principal); Z20.822 Contact with and (suspected) exposure to COVID-19; I10 Essential (primary) hypertension; E78.00 Pure hypercholesterolemia, unspecified; Z79.02 Long term (current) use of antithrombotics/antiplatelets; Z79.899 Other long term (current) drug therapy
CPT/HCPCS: 36415; 51701; 71045; 80053; 81001; 83605; 84443; 85025; 87040; 87635; 93005; 97162; 99285